=== PATIENT | female | born 1985 | race Caucasian/White ===

== ENCOUNTER 2018-07-26 07:38 | Day surgery (SDC) | payer OTHER ==
[2018-07-26] MEDS ORDERED: FAMOTIDINE 20 MG/2 ML VIAL ONE (08:48)
[2018-07-26] MEDS ORDERED: KETOROLAC TROMETHAMINE 30 MG/1ML VIAL ONE (08:48)
[2018-07-26] MEDS ORDERED: PROPOFOL 200 MG/20 ML VIAL IV ONE (08:48)
[2018-07-26] MEDS ORDERED: PHENYLEPHRINE HCL 10 MG/1 ML ONE (08:48)
[2018-07-26] MEDS ORDERED: DEXAMETHASONE SODIUM PHOSPHATE 10 MG/ML VIAL ONE (08:48)
[2018-07-26] MEDS ORDERED: MORPHINE SULFATE 5 MG/ML ML ONE ×2 (08:48→11:01)
[2018-07-26] MEDS ORDERED: MIDAZOLAM HCL 2 MG/2 ML VIAL ONE (08:48)
[2018-07-26] MEDS ORDERED: PROMETHAZINE HCL 25 MG/ML VIAL ONE ×2 (08:48→11:07)
[2018-07-26] MEDS ORDERED: HYDROmorphone HCL/PF 1 MG/ML VIAL ONE ×3 (08:48→11:44)
[2018-07-26] MEDS ORDERED: SEVOFLURANE 250 ML LIQUID IH ONE (08:48)
[2018-07-26] MEDS ORDERED: ceFAZolin SODIUM 1 GM VIAL ONE (08:48)
[2018-07-26] MEDS ORDERED: LIDOCAINE HCL 1% PF 300MG/30ML VIAL ONE (08:48)
[2018-07-26] MEDS ORDERED: LEVALBUTEROL NEB 1.25 MG/3 ML VIAL.NEB IH ONE (08:48)
[2018-07-26] MEDS ORDERED: LACTATED RINGERS 1,000 ML IV.SOLN IV ONE ×2 (08:48)
[2018-07-26] MEDS ORDERED: SCOPOLAMINE HYDROBROMIDE 1.5MG/72HR PATCH TD ONE ×2 (08:48→09:08)
[2018-07-26] MEDS ORDERED: ONDANSETRON HCL/PF 4 MG/ 2ML VIAL ONE (08:48)
[2018-07-26] MEDS ORDERED: BUPIV. HCL 0.25% (2.5MG/ML)/EPI. (1:200,000) PF 30 ML VIAL IJ ONE (08:48)
[2018-07-26] MEDS ORDERED: ESMOLOL HCL 100 MG/10 ML IV ONE (08:48)
[2018-07-26] MEDS ORDERED: ROCURONIUM BROMIDE 10 MG/ML 5ML VIAL ONE (08:48)
[2018-07-26] MEDS ORDERED: SODIUM CHLORIDE IRRIG SOLUTION 3,000 ML IRRIG.SOLN IR ONE (08:48)
[2018-07-26] MEDS ORDERED: MORPHINE SULFATE 10 MG/ML VIAL ONE (08:48)
[2018-07-26] MEDS ORDERED: LIDOCAINE HCL 2% PF 100MG/5ML VIAL IJ ONE (08:48)
[2018-07-26] MEDS ORDERED: SUGAMMADEX SODIUM 200 MG/2 ML VIAL IV ONE (08:48)
[2018-07-26] MEDS ORDERED: KETOROLAC TROMETHAMINE 30 MG/1ML VIAL IVP PRN (11:20)
[2018-07-26] MEDS ORDERED: MORPHINE SULFATE 4 MG/ML VIAL IVP PRN (11:20)
[2018-07-26] MEDS ORDERED: ONDANSETRON HCL/PF 4 MG/ 2ML VIAL IVP PRN (11:20)
[2018-07-26] MEDS ORDERED: HYDROcodone-ACETAMIN 7.5-325/15ML SOLN UD CUP PO PRN (11:20)
[2018-07-26] MEDS ORDERED: diphenhydrAMINE HCL 50 MG/ML VIAL ONE (12:22)
[2018-07-26] MEDS ORDERED: FAMOTIDINE 20 MG/2 ML VIAL IVP SCH (21:00)
[2018-07-27] MEDS ORDERED: ENOXAPARIN SODIUM 40 MG/0.4 ML DISP.SYRIN SQ SCH (09:00)
--- NOTE | 2018-07-29 09:30 | Operative Note ---
PREOPERATIVE DIAGNOSIS: Morbid obesity. POSTOPERATIVE DIAGNOSIS: Morbid obesity. PROCEDURES PERFORMED: 1. Laparoscopic vertical sleeve gastrectomy. 2. Upper gastrointestinal endoscopy. SURGEON: Wang Quijano M.D. INDICATIONS FOR PROCEDURE: Ms. Ritter is a 32-year-old female who presented with features of morbid obesity. She was noted to have a weight of 264 pounds with a BMI of 41.9. The patient was advised laparoscopic vertical sleeve gastrectomy and possible hiatal hernia repair. The patient showed understanding and agreed to proceed. DESCRIPTION OF PROCEDURE: After explaining to the patient in detail and informed consent was obtained, the patient was identified in the preoperative holding area. The patient was transferred to the operating room and was placed in supine position. Sequential compressive devices were placed for DVT prophylaxis. Preoperative antibiotics were given. After induction of anesthesia, the abdomen was prepped and draped in a sterile fashion. Through a left upper quadrant 1-cm incision, and using Optiview technique, the peritoneal cavity was entered and pneumoperitoneum was created. Thereafter, under direct vision, another 5-mm trocar was placed in the left midabdomen and another 15-mm trocar was placed in the right midabdomen. Through a 1-cm incision in the right subcostal region, another 5-mm trocar was placed. Through a 1-cm incision in the epigastrium, a Rashmi retractor was introduced and the left lobe of the liver was retracted. On initial inspection, the patient was noted to have no evidence of hiatal hernia. I took down the gastroepiploic vessels using a LigaSure. This was continued superiorly. The short gastric vessels were taken down. The gastrophrenic ligament was divided and the Angle of His was mobilized. The posterior attachments of the stomach on the pancreas were released. Distally, the gastroepiploic vessels were taken down up to about 4 cm proximal to the pylorus. At this point, a #38 [place] Hurst Bougie was introduced into the stomach and was placed along the lesser curve. The stomach was then divided in a vertical fashion with multiple Endo DELMA Covidien Black Load Staplers. The first firing was directed outwards towards the greater curvature. Subsequent firings were directed towards the Angle of His to create a loose sleeve around the #38 [place] bougie. The bougie was then removed and an upper GI endoscopy was performed at this point. The scope was introduced into the esophagus and was gradually advanced into the stomach. The GE junction appeared normal. The sleeve size appeared normal. No evidence of any active bleeding was noted. The stomach was insufflated with air and irrigation of fluid along the staple line revealed no evidence of air leak. The stomach was then suctioned out and the scope was removed. Absolute hemostasis was ensured. Thorough saline irrigation was given. The Rashmi retractor was removed. Approximately 10 mL of a lidocaine- Marcaine mix was instilled under the left hemidiaphragm. The sleeve gastrectomy specimen was removed. The abdomen was then deflated. The incisions were closed with 4-0 Monocryl. Dermabond was applied. Approximately 10 mL of a lidocaine- Marcaine mix was injected into all the incisions. The patient was awakened from anesthesia and was transferred to the recovery room in stable condition. ESTIMATED BLOOD LOSS: Approximately 5 mL. CONDITION OF THE PATIENT: Stable. FLUIDS GIVEN: Per Anesthesia note. SPECIMEN(S) SENT: Sleeve gastrectomy specimen. COMPLICATIONS: None. ANESTHESIA: General. Wang Quijano M.D. MADISYN/abhay @1049 @0815 MTDD
== END 2018-07-26 12:42 | disposition other institution (70) ==
LOC: OPSURG 07:38
PROVIDERS: ATTEND Surgery
DX: E66.01 Morbid (severe) obesity due to excess calories (principal); Z68.41 Body mass index [BMI] 40.0-44.9, adult
CPT/HCPCS: 43235; 43775; A9270; J0690; J1170; J1200; J1885; J2001; J2250; J2270; J2370; J2405; J2550; J2704; J7120; J7614

== ENCOUNTER 2018-07-26 12:43 | Inpatient (IN) | payer OTHER ==
[2018-07-26] MEDS ORDERED: diphenhydrAMINE HCL 50 MG/ML VIAL IVP PRN (12:50)
[2018-07-26 13:27] VITALS: BMI 41.0
[2018-07-26] MEDS: 0.9 % SODIUM CHLORIDE 1,000 ML IV SCH ×2 (13:30→21:46)
--- NOTE | 2018-07-26 13:59 | History and Physical Report ---
History of Present Illnes - History of Present Illness Reason for Visit: S/P Gastric Sleeve History of Present Illness: Patient is a 32-year-old female who has tried multiple diets and exercise programs with no success. She has always struggled with her weight. Patient and surgeon decided to proceed with gastric sleeve procedure. Procedure went well- patient will be admitted and monitored s/p surgical intervention. Patient has been on a liquid diet prior to surgery so she is a risk of dehydration s/p surgery. She will be admitted for IV hydration to help hydrate patient until she is able to tolerate a sufficient oral intake, will treat pain with IV medication until patient is able to tolerate oral meds, IV antiemetics to help reduce episodes of nausea and/or vomiting. Patient will be monitored closely with blood pressures ranging 160/113 and blood sugar of 190 (she states that she is borderline diabetic-takes no meds)- we will check blood sugars regularly and monitor blood pressure. Pain medication will be given and see if this is cause of HTN. - Past Medical History Gastrointestinal: GERD Psych: Anxiety, Depression, Other (ADD) Musculoskeletal: Chronic low back pain Endocrine: Diabetes (Diet Controlled), obesity Grav: 2 Para: 0 Ab: 2 - Past Surgical History Past Surgical History: Appendectomy, Cholecystectomy, Other (wisdom teeth) - Past Family History Mother Family History: , Other (Obesity) Father Family History: , Other (Obesity) - Past Social History Smoke: Quit (December 2017) Alcohol: None Drugs: None Lives: With Family Domestic Violence: Negative - Health Maintenance Health Maintenance: Tetanus, Influenza Vaccine Influenza Vaccine: Current for this Influenza Season Pneumonia Vaccine: No Resuscitation Status: Resusciation Status Resuscitation Status Full Code - Unable to Obtain History Unable to Obtain: No Review of Systems - Review of Systems Constitutional: negative: Fever, Chills Eyes: negative: pain, conjunctivae inflammation ENT: negative: Ear Pain, Nose Discharge, Throat Pain Respiratory: negative: Cough, Shortness of Breath, Wheezing Cardiovascular: negative: Chest Pain Gastrointestinal: Nausea, Abdominal Pain (S/p gastric sleeve). negative: Vomiting Genitourinary: negative: Dysuria Musculoskeletal: Back Pain (Low back Pain) Skin: Other (incision sites x 5) Neurological: negative: Weakness, Confusion - Medications/Allergies Allergies/Adverse Reactions: Allergies Allergy/AdvReac Type Severity Reaction Status Date / Time Calcium Channel Blocking Allergy Verified 07/26/18 12:44 Agent Dilt Latex, Natural Rubber Allergy Verified 07/26/18 12:44 topiramate [From Topamax] Allergy Verified 07/26/18 12:44 Current Inpatient Medications: Current Inpatient Medications Cefazolin Sodium/Dextrose (Ancef 1 Gm/50 Ml-Dextrose) 1 gm IV Q8H [facility] Stop: 07/27/18 02:01 Diphenhydramine HCl (Benadryl) 25 mg IVP Q6H PRN PRN Reason: Sleeping and Itching Stop: 07/30/18 12:49 Enoxaparin Sodium (Lovenox) 40 mg SQ DAILY [facility] Stop: 08/10/18 08:59 Famotidine (Pepcid) 20 mg IVP BID [facility] Stop: 07/30/18 20:59 Promethazine HCl 25 mg/ Sodium (Chloride) 51 mls @ 200 mls/hr IV Q6 PRN PRN Reason: Nausea / Vomiting Stop: 07/30/18 12:49 Sodium Chloride (Normal Saline) 1,000 mls @ 150 mls/hr IV Q8H [facility] Ketorolac Tromethamine (Toradol) 30 mg IVP Q6 PRN PRN Reason: For Mild Pain Stop: 07/30/18 12:49 Miscellaneous (Chem Sticks) 1 each MC Q6H [facility] Morphine Sulfate (Morphine Sulfate) 2 mg IVP Q2 PRN PRN Reason: MODERATE PAIN Stop: 07/27/18 12:49 Ondansetron HCl (Zofran) 4 mg IVP Q6H PRN PRN Reason: Nausea / Vomiting Stop: 07/30/18 12:49 Oxycodone HCl (Roxicodone) 5 mg PO Q6H PRN PRN Reason: PAIN Exam - Exam Vital Signs: Vital Signs (72 hours) 07/26/18 12:48 Temperature 97.4 F L Pulse Rate [ 107 H Right] Respiratory 20 Rate Blood Pressure 165/113 [Right Arm] O2 Sat by Pulse 95 Oximetry General: Alert, Oriented to Person, Oriented to Place, Oriented to Time, Cooperative, Mild distress (having some abdominal discomfort s/p surgery), Morbidly Obese HEENT: PERRLA, Mouth Mucous membr. moist/Center Line, Nose Mucous membr. moist/Center Line Neck: Normal Range of Motion. No: Stridor Lungs: Clear to auscultation (abdominal pain when taking deep breath), Normal air movement, Speaks full Sentences Cardiovascular: Regular rate, Normal S1, Normal S2 Peripheral Edema: None Peripheral Pulses: 2+ Abdomen: Soft, Decreased Bowel Sounds Integumentary: Center Line, Warm, Dry, Other (incision sites x 5 with drsg sites intact and dry) Extremities: No edema, Normal pulses, No tenderness/swelling Neurological: Normal gait (Patient has ambulated with physical therapy), Normal speech, Strength Equal Bilat, Sensation intact, Cranial nerves 3-12 NL Psych/Mental Status: Mental status NL, Mood NL, Appropriate Affect, Intact Judgment Assessment/Plan - Assessment/Plan (1) S/P gastric surgery Status: Acute Current Visit: Yes Plan: Plan to admit for IV hydration, IV pain meds, and IV antiemetics. Lovenox to help prevent DVTs and SCD's, IS and frequent ambulation will be implemented. Start ice chips and advance diet as tolerated. (2) Morbid obesity due to excess calories Status: Acute Current Visit: Yes Plan: Patient is s/p gastric sleeve. We will assist patient with implementing gastric sleeve diet protocol starting with ice chips and clear liquids and advancing as tolerated. (3) GERD (gastroesophageal reflux disease) Status: Acute Current Visit: Yes Qualifiers: Esophagitis presence: without esophagitis Qualified Code(s): K21.9 - Gastro-esophageal reflux disease without esophagitis Plan: We will implement Pecid IV BID to help with GERD while patient is hospitalized to decrease acid reflux and until patient can tolerate oral medications (4) Lumbar pain Status: Acute Current Visit: Yes Plan: Patient is c/o some lower back pain- we will get K-Pad ordered to help decrease discomfort VTE Assessment - RISK FACTOR SCORE VTE RISK FACTOR SCORES: OBESITY, MAJOR SURGERY/ANESTHESIA TIME > 1 HOUR - RISK VTE MODERATE RISK: SCORE OF 2 (RISK PROXIMAL DVT 2-4%) PROPHYAXIS NEEDED (Will start Lovenox 40 mg daily, SCD's while in bed, and frequent ambulation)
[2018-07-26] MEDS: PROMETHAZINE HCL 25 MG in 0.9 % SODIUM CHLORIDE 50 ML IV PRN ×2 (15:14→22:35)
[2018-07-26] MEDS: MORPHINE SULFATE 4 MG/ML VIAL IVP PRN ×2 (16:02→21:39)
[2018-07-26] MEDS: ONDANSETRON HCL/PF 4 MG/ 2ML VIAL IVP PRN ×2 (19:45→21:42)
[2018-07-26] MEDS: KETOROLAC TROMETHAMINE 30 MG/1ML VIAL IVP PRN (19:55)
[2018-07-26] MEDS: FAMOTIDINE 20 MG/2 ML VIAL IVP SCH (21:47)
[2018-07-27] MEDS: ONDANSETRON HCL/PF 4 MG/ 2ML VIAL IVP PRN ×3 (02:40→16:46)
[2018-07-27] MEDS: MORPHINE SULFATE 4 MG/ML VIAL IVP PRN (03:04)
[2018-07-27] MEDS: PROMETHAZINE HCL 25 MG in 0.9 % SODIUM CHLORIDE 50 ML IV PRN ×2 (04:58→19:28)
[2018-07-27] MEDS: 0.9 % SODIUM CHLORIDE 1,000 ML IV SCH ×3 (04:59→19:46)
--- NOTE | 2018-07-27 08:36 | Inpatient Progress Note ---
Subjective - Required Recertification Statement I anticipate X number of days because-include discharge plan: 1 - Review of Systems Events since last encounter: According to nursing staff and patient; she is experiencing some nausea and dry heaves. Unable to tolerate a lot PO at this time. She is still working on ice chips and sips of liquid as tolerated. She is continuing to require IV antiemetics. She has been up ambulating in the halls, wearing SCDs while in bed and using incentive spirometer. Incision sites are intact and dry. She continues to receive IV pain medications due to vomiting of oral agents. She is passing gas and belching. We are continuing to monitor blood sugars (ranging around 130s) and blood pressures (ranging around 140s). General: Fatigue. Denies: Chills, Night Sweats HEENT: Denies: Head Aches, Eye Pain, Dysphasia Pulmonary: Denies: Dyspnea, Cough Cardiovascular: Denies: Chest Pain, Palpitations, Light Headedness Gastrointestinal: Nausea, Vomiting, Abdominal Pain (s/p gastric sleeve) Genitourinary: Denies: Dysuria Musculoskeletal: Back Pain (using K-Pad) Neurological: Denies: Weakness, Seizures Objective - Exam Vitals and I&O: Vital Signs Temp 97.6 F 07/27/18 08:04 Pulse 75 07/27/18 08:04 Resp 18 07/27/18 08:04 BP 163/91 07/27/18 08:04 Pulse Ox 99 07/27/18 08:04 Intake & Output 07/26/18 07/26/18 07/27/18 11:59 23:59 11:59 Intake Total 660 1020 Output Total 850 400 Balance -190 620 Weight 118.841 kg Intake: IV 450 900 Right Antecubital 450 900 Oral 210 120 Output: Urine 850 400 Other: Voiding Method Toilet Toilet # Voids 1 General: Alert, Oriented to Person, Oriented to Place, Oriented to Time, Cooperative, Mild distress (due to nausea), Morbidly Obese HEENT: PERRLA, Mouth Mucous membr. moist/Belva, Nose Mucous membr. moist/Belva Neck: Supple, +2 carotid pulse wo bruit Lungs: Clear to auscultation, Normal air movement, Speaks full Sentences Cardiovascular: Regular rate, Normal S1, Normal S2 Abdomen: Soft, Decreased Bowel Sounds Extremities: Normal pulses, No tenderness/swelling Skin: Normal, Belva, Warm, Dry Neurological: Normal gait, Normal speech, Strength Equal Bilat, Sensation intact, Cranial nerves 3-12 NL Psych/Mental Status: Mental status NL, Mood NL, Appropriate Affect, Intact Judgment Assessment/Plan - Assessment/Plan (1) S/P gastric surgery Status: Acute Plan: Will try to transition patient to PO meds (nausea & pain) as soon as we can get nausea/vomiting controlled, Will continue with IVF to prevent dehydration, continue with ambulation, continue use of incentive spirometer (2) Morbid obesity due to excess calories Status: Acute Plan: Continue with Gastric Sleeve diet (will try to push po as patient can tolerate (3) GERD (gastroesophageal reflux disease) Status: Acute Qualifiers: Esophagitis presence: without esophagitis Qualified Code(s): K21.9 - Gastro-esophageal reflux disease without esophagitis Plan: We will continue with Pepcid IV BID for nausea/vomiting (4) Lumbar pain Status: Acute Plan: patient ambulating frequently in the [place], use of K-Pad
[2018-07-27] MEDS ORDERED: MAG HYDROX/ALUMINUM HYD/SIMETH 30 ML UDC PO ONE ×2 (08:51→19:20)
[2018-07-27] MEDS ORDERED: 0.9 % SODIUM CHLORIDE 50 ML IV ONE (08:52)
[2018-07-27] MEDS: FAMOTIDINE 20 MG/2 ML VIAL IVP SCH ×2 (09:03→19:27)
[2018-07-27] MEDS: MAG HYDROX/ALUMINUM HYD/SIMETH 30 ML UDC PO PRN ×2 (09:03→19:27)
[2018-07-27] MEDS: KETOROLAC TROMETHAMINE 30 MG/1ML VIAL IVP PRN ×2 (10:14→16:47)
[2018-07-27] MEDS: ENOXAPARIN SODIUM 40 MG/0.4 ML DISP.SYRIN SQ SCH (10:30)
[2018-07-28] MEDS: 0.9 % SODIUM CHLORIDE 1,000 ML IV SCH ×2 (00:30→05:21)
[2018-07-28] MEDS: FAMOTIDINE 20 MG/2 ML VIAL IVP SCH (08:20)
[2018-07-28 08:25] VITALS: BP 125/79
[2018-07-28] MEDS: ENOXAPARIN SODIUM 40 MG/0.4 ML DISP.SYRIN SQ SCH (09:11)
--- NOTE | 2018-07-28 09:12 | Discharge Summary ---
Discharge Summary - Discharge Sumary History of Present Illness: Patient is a 32-year-old female who has tried multiple diets and exercise programs with no success. She has always struggled with her weight. Patient and surgeon decided to proceed with gastric sleeve procedure. Procedure went well- patient will be admitted and monitored s/p surgical intervention. Patient has been on a liquid diet prior to surgery so she is a risk of dehydration s/p surgery. She will be admitted for IV hydration to help hydrate patient until she is able to tolerate a sufficient oral intake, will treat pain with IV medication until patient is able to tolerate oral meds, IV antiemetics to help reduce episodes of nausea and/or vomiting. Patient will be monitored closely with blood pressures ranging 160/113 and blood sugar of 190 (she states that she is borderline diabetic-takes no meds)- we will check blood sugars regularly and monitor blood pressure. Pain medication will be given and see if this is cause of HTN. Condition at Discharge: Stable Home Medications: Ambulatory Orders Medication Instructions Recorded Medroxyprogesterone Acetate 150 mg IM Q90D 07/26/18 [Depo-Provera] Omeprazole 20 mg PO 0700 07/26/18 Consultations this Visit: None Procedures this Visit: Other (Sleeve gastrectomy) Allergies/Adverse Reactions: Allergies Allergy/AdvReac Type Severity Reaction Status Date / Time Calcium Channel Blocking Allergy Verified 07/26/18 12:44 Agent Dilt Latex, Natural Rubber Allergy Verified 07/26/18 12:44 topiramate [From Topamax] Allergy Verified 07/26/18 12:44 Patient Problems: Current Active Problems Problem Status Onset GERD (gastroesophageal reflux disease) Acute Lumbar pain Acute Morbid obesity due to excess calories Acute S/P gastric surgery Acute Discharge Summary: Patient admitted to Acute care after undergoing sleeve gastrectomy. She had a lot of vomiting for the first 24 hours post op, unable to tolerate jello. This was finally controlled with IV antiemetics and ambulation. She started passing a lot of gas and tolerated po liquids. Pain controlled with IV pain meds then oral oxycodone (reports vomiting from hydrocodone). SCD's, ambulation, Lovenox and IS utilized. BS 120-160. Will monitor at home and take to PCP appt. BP ran 130-160. She will monitor this at home as well. Discharged in stable condition. Hospital Course: Discharge dx: Morbid obesity - s/p sleeve gastrectomy. GERD. DM. Elevated BP. Disposition - home
== END 2018-07-28 11:25 | disposition home or self-care (01) | DRG 641 ==
LOC: SOUTH 12:43
PROVIDERS: ADMIT Nurse Practitioner Family; ATTEND Nurse Practitioner Family
DX: E66.01 Morbid (severe) obesity due to excess calories (principal); G89.18 Other acute postprocedural pain; R11.2 Nausea with vomiting, unspecified; K21.9 Gastro-esophageal reflux disease without esophagitis
CPT/HCPCS: 97116; 97161; 97165; 97535; J1650; J1885; J2270; J2405; J2550; J7030; 99231; 99232; 99238; S1016